=== PATIENT | female | born 2000 | race Two or more races ===

== ENCOUNTER 2023-03-28 20:13 | Emergency (ER) | payer MEDICAID, OTHER ==
[~2023-03-28] VITALS: Ht 170.2 cm; Wt 90.9 kg
[2023-03-28] MEDS ORDERED: SODIUM CHLORIDE 0.9% 1,000 ML IV ONE (20:30)
[2023-03-28] MEDS ORDERED: KETOROLAC TROMETH 30 MG/ML 1ML VIAL IV ONE (20:30)
[2023-03-28 20:54] VITALS: PULSE 98; RESP 18; O2SAT 98
[2023-03-28 20:54] LABS: Basophils # (auto) 0.1 10 ^3/uL (0-0.2); Basophils % (auto) 0.8 % (0.0-2.0); Eosinophils # (auto) 0.2 10 ^3/uL (0-0.8); Eosinophils % (auto) 2.5 % (0.0-7.0); Hematocrit 40.5 % (36.0-46.0); Hemoglobin 13.3 g/dL (12.2-16.2); Lymphocytes # (auto) 2.2 10 ^3/uL (0.4-5.4); Lymphocytes % (auto) 24.9 % (10.0-50.0); Mean Corpuscular Hgb Conc. 32.8 g/dL (32.0-36.0); Mean Corpuscular Volume 82.2 fL (80.0-100.0); Monocytes # (auto) 0.6 10 ^3/uL (0-1.3); Monocytes % (auto) 7.2 % (0.0-12.0); Neutrophils # (auto) 5.7 10 ^3/uL (1.6-8.6); Neutrophils % (auto) 64.6 % (37.0-80.0); Red Blood Cells 4.92 10^6/uL (4.0-5.20); Red Cell Distribution Width 13.4 % (11.8-14.3); White Blood Cell 8.9 10^3/uL (4.4-10.8)
[2023-03-28 21:12] LABS: Alanine Aminotransferase 247 U/L (7-40); Albumin 4.9 g/dL (3.2-4.8); Alkaline Phosphatase 94 U/L (46-116); Anion Gap 9 (5-15); Aspartate Aminotransferase 108 U/L (13-40); BUN/Creatinine Ratio 9.7 (10.0-20.0); Blood Urea Nitrogen 9 mg/dL (9-23); Calcium 9.6 mg/dL (8.7-10.4); Carbon Dioxide 25 mmol/L (20-30); Chloride 106 mmol/L (98-107); Glucose 124 mg/dL (74-106); Magnesium 1.9 mg/dL (1.6-2.6); Potassium 3.7 mmol/L (3.5-5.1); Sodium 140 mmol/L (136-145)
[2023-03-28 21:13] LABS: Bilirubin, Total 0.3 mg/dL (0.2-1.0); Total Protein 7.8 g/dL (5.7-8.2)
[2023-03-28 21:23] LABS: INR 0.96 (0.9-1.15); Partial Thromboplastin Time 28.2 SEC (24.5-34.5); Prothrombin Time 10.1 sec (9.3-11.8)
[2023-03-28] MEDS ORDERED: NAP500T PO (22:22)
[2023-03-28 23:00] VITALS: BP 151/90; PULSE 97; RESP 18; TEMP 98.7; O2SAT 100
== END 2023-03-28 22:22 | disposition home or self-care (01) ==
LOC: ER 20:13
DX: R07.89 Other chest pain (principal); R10.2 Pelvic and perineal pain; R00.0 Tachycardia, unspecified; I10 Essential (primary) hypertension
CPT/HCPCS: 36415; 71046; 80053; 83735; 84484; 84702; 85025; 85379; 85610; 85730; 93005; 96361; 96374; 99285; J1885; J7030